=== PATIENT | male | born 1970 | race African-American/Black ===

== ENCOUNTER 2018-03-15 11:04 | Emergency (ER) | payer SELFPAY ==
[2018-03-15] MEDS ORDERED: Gentamicin Ophth Ointment 0.3% 3.5 gm Tube ONE (11:14)
== END 2018-03-15 11:24 | disposition home or self-care (01) ==
LOC: BURERS 11:04
DX: H00.011 Hordeolum externum right upper eyelid (principal); F17.210 Nicotine dependence, cigarettes, uncomplicated
CPT/HCPCS: 99283

== ENCOUNTER 2023-02-01 06:32 | Emergency (ER) | payer OTHER ==
[2023-02-01] MEDS ORDERED: HYDROcodone/Acetaminophen 5/325 mg Tablet ONE (06:55)
== END 2023-02-01 07:00 | disposition home or self-care (01) ==
LOC: BURERS 06:32
DX: K64.9 Unspecified hemorrhoids (principal); I10 Essential (primary) hypertension; F17.210 Nicotine dependence, cigarettes, uncomplicated
CPT/HCPCS: 99283

== ENCOUNTER 2023-12-11 08:18 | Emergency (ER) | payer OTHER | END 2023-12-11 08:30 | disposition home or self-care (01) | LOC: BURERS 08:18 | DX: T16.2XXA Foreign body in left ear, initial encounter (principal); F17.210 Nicotine dependence, cigarettes, uncomplicated; I10 Essential (primary) hypertension | CPT/HCPCS: 69200; 99282 ==